=== PATIENT | female | born 1995 | race Hispanic/Latino ===

== ENCOUNTER 2016-03-27 12:18 | Emergency (ER) | payer MEDICAID ==
[~2016-03-27] VITALS: Ht 157.5 cm; Wt 131.5 kg
[~2016-03-27 12:18] MED LIST: DOCU-243 PO; HYDR-33 PO; IBUP-1772 PO; PNV91TAB3 PO
[2016-03-27] MEDS ORDERED: SODIUM CHLORIDE FLUSH 10 ML SYR IV PRN (12:45)
[2016-03-27] MEDS ORDERED: ONDANSETRON 2 MG/ML (Z0FRAN) 2 ML VIAL IV ONE (12:45)
[2016-03-27] MEDS ORDERED: KETOROLAC 30 MG/ML (TORADOL) 1 ML VIAL IV ONE (12:45)
[2016-03-27 13:21] LABS: BASOPHILS % (AUTO) 0 % (0-2); EOSINOPHILS # (AUTO) 0.1 10^3uL; EOSINOPHILS % (AUTO) 1 % (0-4); LYMPHOCYTES # (AUTO) 1.3 X10^3; MEAN CORPUSCULAR HEMOGLOBIN 27.8 PG (26.0-34.0); MEAN CORPUSCULAR VOLUME 82 FL (80-100); MEAN PLATELET VOLUME 10.9 FL (6.0-9.5); MONOCYTES # (AUTO) 0.9 X10^3; MONOCYTES % (AUTO) 7 % (3-11); NEUTROPHILS # (AUTO) 10.7 X10^3; NEUTROPHILS % (AUTO) 82 % (51-67); PLATELET COUNT 318 10^3uL (150-450); WHITE BLOOD COUNT 13.05 10^3uL (4.0-11.0)
[2016-03-27 13:29] LABS: ALBUMIN 4.3 g/dL (3.4-5.0); ANION GAP 13.8 MEQ/L (3-15); CALCULATED IONIZED CALCIUM 3.4 mg/dL (3.8-4.6); TOTAL PROTEIN 8.5 g/dL (6.4-8.5)
[2016-03-27 13:37] LABS: INFLUENZA VIRUS TYPE A ANTIBOD Negative (NEGATIVE); INFLUENZA VIRUS TYPE B ANTIBOD Negative (NEGATIVE)
[2016-03-27] MEDS ORDERED: ONDA4TAB8 PO (13:56)
[2016-03-27] MEDS ORDERED: AZIT250T81 PO (13:56)
[2016-03-27] MEDS ORDERED: TRM50T PO (13:56)
[2016-03-27 13:59] VITALS: BP 130/64
== END 2016-03-27 14:17 | disposition home or self-care (01) ==
LOC: ED 12:20
DX: J01.20 Acute ethmoidal sinusitis, unspecified (principal); J02.9 Acute pharyngitis, unspecified; R11.2 Nausea with vomiting, unspecified
CPT/HCPCS: 36415; 80053; 84703; 85025; 86140; 87400; 96361; 96374; 96375; 99283; J1885; J2405; J7030; 87502